=== PATIENT | female | born 1995 | race Caucasian/White ===

== ENCOUNTER 2022-05-19 15:22 | Emergency (ER) | payer OTHER, SELFPAY ==
--- NOTE | ~2022-05-19 | XR_ITS ---
EXAMINATION: XR HAND, LEFT CLINICAL INFORMATION: Palm laceration COMPARISON: None TECHNIQUE: PA, lateral, and oblique views of the left hand. FINDINGS: The bones and soft tissues are normal. No radiopaque foreign bodies are seen. No fracture. Alignment is anatomic. Joint spaces are maintained. No erosions or soft tissue calcifications. XR/XR hand LT min 3V IMPRESSION: Normal left hand.
[2022-05-19 15:41] VITALS: BP 135/77; PULSE 84; RESP 20; TEMP 36.7; O2SAT 100; BMI 34.4
--- NOTE | 2022-05-19 20:04 | ED_ITS ---
HPI - Wound/Laceration General Chief Complaint: Wound/Laceration Stated Complaint: sliced left hand with kitchen knife Time Seen by Provider: 05/19/22 19:24 Source: patient Mode of arrival: ambulatory Limitations: no limitations History of Present Illness HPI narrative: this is a 27-year-old female presenting to the emergency department with a puncture wound to her left home, patient tells me she was cutting meat and she accidentally punctured herself with a clean kitchen knife. Patient denies numbness or tingling. Up-to-date on immunizations and tetanus shot. Not on blood thinners Onset (ago): hour(s) (5) Location: other (left palm ) Place: home Patient tetanus UTD: Yes Context: accidental Associated symptoms: none Related Data Previous Rx's Medication Instructions Recorded doxycycline hyclate 100 mg capsule 100 mg PO BID 10 days #20 caps 05/19/22 Allergies Allergy/AdvReac Type Severity Reaction Status Date / Time No Known Allergies Allergy Unverified 07/30/20 18:43 [No Known Allergies*] Review of Systems Review of Systems: Constitutional : No Fever, No Chills, Cardiovascular : No Chest Pain, No SOB Respiratory : No Dyspnea Gastrointestinal : No abdominal pain Musculoskeletal : No Joint Swelling Skin : No rash, positive skin laceration Neuro : No Weakness, No Numbness Psych : No SI/HI Yes all other systems are reviewed and are negative [facility] Past Medical History Attestation statement: The following information was validated with the patient. Source: old records reviewed and nursing notes reviewed Social History Social History Advance Directives: No Advance Directives Information Provided: No Physical Exam Vital Signs: Vital Signs: Last Vital Signs Temp 97.5 F 05/19/22 20:28 Pulse 66 05/19/22 20:28 Resp 16 05/19/22 20:28 BP 108/54 L 05/19/22 20:28 Pulse Ox 100 05/19/22 20:28 O2 Del Method 05/19/22 20:28 BMI result Body Mass Index 34.4 VSS Appearance: Alert.? Oriented X3.? No acute distress.? Head: Normocephalic, atraumatic, no step-offs or deformities Eyes: Pupils equal, round and reactive to light.? CVS: Normal heart rate and rhythm.? Pulses normal.? Respiratory: No respiratory distress.? Breath sounds normal.? Abdomen: Soft and nontender.? Skin: Skin warm and dry.? Normal skin color.? Normal skin turgor.?+ 2 cm puncture wound to the left of hand. 2+ radial pulses equal bilateral. No wrist drop bilaterally. Sensory and motor intact. Extremities: No lower extremity edema.? No calf ttp. 5/5 strength to bilateral upper and lower extremities Back: No midline tenderness, no C-spine tenderness, full range of motion, no CVA tenderness bilaterally Neuro: Oriented X 3.? No motor deficit.? No sensory deficit. CN 2-12 intact Course Reevaluation(s) Reevaluation #1: Four 5-0 sutures placed to left palm of hand. patient tolerated procedure well. No complications. Advised to return in 7-10 days for suture removal. X- ray of the hand pending. Time: 21:34 Reevaluation #2: X-ray of the left hand normal. Educated patient to return in 7-10 days for suture removal. Educated her on signs of infection. Outlined worrisome signs and symptoms on discharge unknown to return. At this time I feel comfortable discharge home. Time: 21:51 MDM - Wound/Laceration MDM Narrative Medical decision making narrative: 2039 27-year-old female presents with puncture wound to the left palm. Accidental denies SI and HI. Physical examination significant for a 2 cm puncture wound to the left palm. No evidence of foreign body. Sensory and motor intact. Plan at this time is x-ray and then puncture wound will be sutured. Medical Records Attestation: I reviewed the patient's medical records. Lab Data Attestation: I reviewed the patient's lab results. Critical Care Time Critical Care Time Critical Care Time: No Discharge Plan Discharge Clinical Impression: Laceration Patient Disposition: Home, Self-Care Additional Instructions: Take your medications as prescribed. If you were prescribed antibiotics today, it is important that you take your medication to their entirety, do not skip any doses, do not finish them early. Follow-up with your primary care provider this week. Return to the emergency department with new or worsening symptoms. Such as fevers, chills, chest pain, shortness of breath, nausea, vomiting, dizziness, headache, vision changes, lethargy In case of emergency call 911 Return in 7-10 days for suture removal Prescriptions: New doxycycline hyclate 100 mg capsule 100 mg PO BID 10 Days Qty: 20 0RF Referrals: [place] [Primary Care Provider] - 2 days Stand Alone Forms: Work/School Release
[2022-05-19 20:28] VITALS: BP 108/54; PULSE 66; RESP 16; TEMP 36.4; O2SAT 100
[2022-05-19] MEDS: Lidocaine HCl 1 % MPF 5 ML VIAL SUBCUT ×2 (20:44)
== END 2022-05-19 22:07 | disposition home or self-care (01) ==
PROVIDERS: Emergency Provider Internal Medicine
DX: S61.412A Laceration without foreign body of left hand, initial encounter (principal); W26.0XXA Contact with knife, initial encounter; Y93.9 Activity, unspecified; Y92.000 Kitchen of unspecified non-institutional (private) residence as the place of occurrence of the external cause; Y99.9 Unspecified external cause status
CPT/HCPCS: 12001; 73130; 99283